=== PATIENT | female | born 1975 | race Caucasian/White ===

== ENCOUNTER → 2017-10-16 | Outpatient (CLI) | payer OTHER ==
--- NOTE | 2017-10-16 10:51 | MM ---
Reason for exam: additional evaluation requested from prior study. Last mammogram was performed 1 year and 6 months ago. History: Patient had first child at age 31. Family history of premenopausal breast cancer in mother at age 42 and breast cancer in maternal aunt. Saline implants in both breasts, 2009. Physical Findings: Nurse did not find any significant physical abnormalities on exam. MG 3D Diag Mammo Imp W/Cad CARL Bilateral CC, MLO, and ID view(s) were taken. Prior study comparison: April 18, 2016, bilateral MG 3d diag mammo imp w/cad CARL. April 02, 2015, bilateral MG 3d diag mammo imp w/cad CARL. The breast tissue is heterogeneously dense. This may lower the sensitivity of mammography. No suspicious calcifications are seen. Chronic nodularity. There is no dominant lesion. There is no discrete abnormality. Stable retropectoral implants intact. These results were verbally communicated with the patient and result sheet given to the patient on 10/16/17. ASSESSMENT: Benign, BI-RAD 2 RECOMMENDATION: Routine screening mammogram of both breasts in 1 year.
== END | disposition home or self-care (01) ==
LOC: RADMAMWWP 09:32
PROVIDERS: ATTEND Obstetrics & Gynecology
DX: R92.8 Other abnormal and inconclusive findings on diagnostic imaging of breast (principal)
CPT/HCPCS: 77062; 77066

== ENCOUNTER → 2018-10-17 | Outpatient (CLI) | payer OTHER ==
--- NOTE | 2018-10-18 11:45 | MM ---
Reason for exam: screening (asymptomatic). Last mammogram was performed 1 year ago. History: Patient had first child at age 31. Family history of premenopausal breast cancer in mother at age 42 and breast cancer in maternal aunt. Saline implants in both breasts, 2009. Physical Findings: A clinical breast exam by your physician is recommended on an annual basis and results should be correlated with mammographic findings. MG 3D Screen Mammo Imp/Cad Bilateral CC, MLO, and ID view(s) were taken. Prior study comparison: October 16, 2017, bilateral MG 3d diag mammo imp w/cad CARL. April 18, 2016, bilateral MG 3d diag mammo imp w/cad CARL. The breast tissue is heterogeneously dense. This may lower the sensitivity of mammography. Finding #1: There is a 15 mm circumscribed oval mass in the right breast on CC 32/60. Finding #2: There are typically benign round calcifications in both breasts. Questionable nodularity right MLO 18/60 upper quadrant. Bilateral subglandular implants. There is a 14mm oval circumscribed mass in the left upper outer quadrant, 3cm from the nipple on CC 38/65 and MLO 18/61. ASSESSMENT: Incomplete: need additional imaging evaluation, BI-RAD 0 RECOMMENDATION: Ultrasound of both breasts. [facility] will attempt to contact patient to return for ultrasound.
== END | disposition home or self-care (01) ==
LOC: RADMAMWWP 09:33
PROVIDERS: ATTEND Obstetrics & Gynecology
DX: Z12.31 Encounter for screening mammogram for malignant neoplasm of breast (principal); Z80.3 Family history of malignant neoplasm of breast
CPT/HCPCS: 77063; 77067

== ENCOUNTER → 2018-10-31 | Outpatient (CLI) | payer OTHER ==
--- NOTE | 2018-10-31 11:27 | USB ---
Reason for exam: additional evaluation requested from abnormal screening. History: Patient had first child at age 31. Family history of premenopausal breast cancer in mother at age 42 and breast cancer in maternal aunt. Saline implants in both breasts, 2010. Physical Findings: Nurse did not find any significant physical abnormalities on exam. US Breast Workup Limited CARL Right complete breast ultrasound includes all four quadrants, the retroareolar region and axilla. Finding demonstrates a 1.5 x 1.3 x 0.6cm oval, cystic lesion at 12 o'clock, a 0.4 x 0.7 x 0.3cm oval, complex, cystic lesion at 12 o'clock, a 0.7 x 0.7 x 0.4cm oval, complex, cystic lesion at 1 o'clock, a 0.7 x 0.6 x 0.3cm oval, irregular, cystic lesion at 7 o'clock, a 0.5 x 0.3 x 0.2cm oval, solid, hyperechoic lipoma at 8 o'clock and a 0.7 x 0.7 x 0.4cm oval, cystic lesion at 10 o'clock. Left limited breast ultrasound including focal area of concern, retroareolar and axilla demonstrates a 1.0 x 1.0 x 0.4cm cystic lesion at 12 o'clock, a 1.5 x 1.3 x 0.7cm cystic lesion at 1 o'clock and a 0.7 x 1.0 x 0.5cm cystic lesion at 2 o'clock. These results were verbally communicated with the patient and result sheet given to the patient on 10/31/18. ASSESSMENT: Suspicious, BI-RAD 4 RECOMMENDATION: Ultrasound core biopsy of the right breast. Called Dr. Nicole with mammographic findings and has scheduled an appointment for the patient for 12/26/18 at 8:[address] Mckeon. Biopsy scheduled for 11/20/18 at 2:00. PRELIMINARY REPORT CALLED AND FAXED TO DR. MCKEON ON 10/31/18.
== END | disposition home or self-care (01) ==
LOC: RADUSWWP 08:22
PROVIDERS: ATTEND Obstetrics & Gynecology
DX: R92.8 Other abnormal and inconclusive findings on diagnostic imaging of breast (principal)

== ENCOUNTER → 2020-02-06 | Outpatient (CLI) | payer OTHER ==
[2020-02-06 19:03] LABS: DNA Double-Stranded Indetermin (NEGATIVE)
[2020-02-06 20:31] LABS: African American GFR (CKD) 102.5 (60.0-200.0); Albumin 4.7 g/dL (3.80-4.90); Albumin/Globulin Ratio 2.14 (1.60-3.17); Anion Gap 8.1 mmol/L (4.00-12.00); BUN/Creat Ratio 18.75 Ratio (12.00-20.00); Calcium 9.7 mg/dL (8.7-10.3); Carbon Dioxide 26.9 mmol/L (21.6-31.8); Globulin 2.2 g/dL (1.6-3.3); Non-African American GFR(CKD) 88.4 (60.0-200.0); Potassium 4.4 mmol/L (3.5-5.5); Total Bilirubin 0.6 mg/dL (0.3-1.2); Total Protein 6.9 g/dL (6.2-8.2)
[2020-02-07 19:41] LABS: HLA B27 NEGATIVE
== END | disposition home or self-care (01) ==
LOC: LABWHC1 11:29
PROVIDERS: ATTEND Internal Medicine Rheumatology
DX: R76.8 Other specified abnormal immunological findings in serum (principal); M70.60 Trochanteric bursitis, unspecified hip; M79.671 Pain in right foot; Z79.899 Other long term (current) drug therapy; M53.3 Sacrococcygeal disorders, not elsewhere classified
CPT/HCPCS: 36415; 80053; 83516; 85652; 86160; 86225; 86235; 86812

== ENCOUNTER → 2021-08-03 | Outpatient (CLI) | payer OTHER ==
--- NOTE | 2021-08-04 06:52 | MR ---
EXAMINATION TYPE: MR shoulder RT wo con DATE OF EXAM: 08/03/2021 COMPARISON: None. HISTORY: Right shoulder pain. TECHNIQUE: Multiplanar, multisequence imaging of the right shoulder is performed without contrast. FINDINGS: Rotator Cuff: Distal supraspinatus and infraspinatus tendons are intact. Distal subscapularis tendon is intact. No retracted tear. Rotator cuff muscle is preserved. Acromioclavicular Joint: Mild to moderate narrowing with moderate capsular hypertrophy. Loss of under lying fat plane is identified. Distal acromion morphology unremarkable. Glenohumeral Joint: Mild to moderate narrowing greatest inferiorly with small joint effusion. No sign ificant spurring. Labrum: The labrum appears grossly intact given limitation of non-arthrogram study. Biceps Tendon: The long head of biceps is in normal location within bicipital groove. Bone marrow signal: Heterogeneity consistent with red marrow reconversion. No suspicious focal edema. Other: No additional significant abnormality is appreciated. IMPRESSION: 1. No rotator cuff tear identified. Degenerative changes with suggestion of underlying impingement. C orrelate clinically.
== END | disposition home or self-care (01) ==
LOC: RADMRIMAIN 16:12
PROVIDERS: ATTEND Orthopaedic Surgery
DX: S43.421A Sprain of right rotator cuff capsule, initial encounter (principal); X58.XXXA Exposure to other specified factors, initial encounter

== ENCOUNTER → 2023-09-17 | Outpatient (CLI) | payer OTHER ==
[2023-09-17 14:23] LABS: HGB 15.1 g/dL (12.0-15.0); MCH 29.3 pg (27.0-32.0); MCHC 32.8 g/dL (32.0-37.0); MCV 89.3 FL (80.0-97.0); Mean Platelet Volume 10.9 FL (9.5-12.2); NRBC Per 100 WBC 0 X 10*3/uL (0.00-0.01); Platelet Count 245 X 10*3/uL (140-440); RBC 5.15 X 10*6/uL (4.10-5.20); RDW 12.6 % (11.5-14.5); WBC 9.41 X 10*3/uL (4.50-10.00)
[2023-09-17 15:15] LABS: ALT 11 U/L (8-44); AST 18 U/L (13-35); Albumin 4.6 g/dL (3.8-4.9); Albumin/Globulin Ratio 2.09 Ratio (1.60-3.17); Alkaline Phosphatase 54 U/L (41-126); BUN/Creat Ratio 19.56 Ratio (12.00-20.00); Blood Urea Nitrogen 17.6 mg/dL (9.0-27.0); Calcium 9.6 mg/dL (8.7-10.3); Carbon Dioxide 29.5 mmol/L (21.6-31.8); Chloride 99 mmol/L (96-109); Chol/HDL Ratio 4.69 Ratio; Globulin 2.2 g/dL (1.6-3.3); Glucose 108 mg/dL (70-110); LDL Cholesterol,Calculated 88.5 mg/dL (0.0-131.0); Potassium 4.3 mmol/L (3.5-5.5); Sodium 140 mmol/L (135-145); Total Bilirubin 0.4 mg/dL (0.3-1.2); Total Protein 6.8 g/dL (6.2-8.2)
== END | disposition home or self-care (01) ==
LOC: LABWHC1 08:11
PROVIDERS: ATTEND Family Medicine
DX: Z00.01 Encounter for general adult medical examination with abnormal findings (principal)
CPT/HCPCS: 36415; 80053; 80061; 85027

== ENCOUNTER → 2024-03-07 | Outpatient (CLI) | payer OTHER ==
--- NOTE | 2024-03-19 06:52 | HM ---
HOLTER MONITOR REPORT INDICATION: Palpitations. FINDINGS: Underlying rhythm is sinus with an average heart rate of 76 beats per minute. There was 1 short self-limited run of atrial tachycardia. Occasional PVCs and PACs are noted. There were no episodes of atrial fibrillation. CONCLUSION: This Holter monitor revealed sinus rhythm with PACs and PVCs and short self-limited run of atrial tachycardia. MMODL / IJN: [id number] /
== END | disposition home or self-care (01) ==
LOC: RADECHMAIN 12:08
PROVIDERS: ATTEND Family Medicine
DX: I49.3 Ventricular premature depolarization (principal); I47.19 Other supraventricular tachycardia; R00.2 Palpitations
CPT/HCPCS: 93225

== ENCOUNTER → 2024-09-22 | Outpatient (CLI) | payer OTHER ==
[2024-09-22 15:27] LABS: BUN/Creat Ratio 16.38 Ratio (12.00-20.00); Blood Urea Nitrogen 13.1 mg/dL (9.0-27.0); Carbon Dioxide 26.5 mmol/L (21.6-31.8); Chloride 104 mmol/L (96-109); Chol/HDL Ratio 4.72 Ratio; Glucose 91 mg/dL (70-110); LDL Cholesterol,Calculated 106.4 mg/dL (0.0-131.0); Potassium 4.3 mmol/L (3.5-5.5); Sodium 140 mmol/L (135-145)
[2024-09-22 15:28] LABS: ALT 8 U/L (8-44); AST 17 U/L (13-35); Albumin 4.3 g/dL (3.8-4.9); Albumin/Globulin Ratio 1.87 Ratio (1.60-3.17); Alkaline Phosphatase 57 U/L (41-126); Calcium 9.4 mg/dL (8.7-10.3); Globulin 2.3 g/dL (1.6-3.3); Total Bilirubin 0.4 mg/dL (0.3-1.2); Total Protein 6.6 g/dL (6.2-8.2)
[2024-09-22 16:22] LABS: HCT 44.9 % (37.2-46.3); HGB 14.7 g/dL (12.0-15.0); MCH 30.2 pg (27.0-32.0); MCHC 32.7 g/dL (32.0-37.0); MCV 92.2 FL (80.0-97.0); Mean Platelet Volume 10.4 FL (9.5-12.2); NRBC Per 100 WBC 0 X 10*3/uL (0.00-0.01); Platelet Count 287 X 10*3/uL (140-440); RBC 4.87 X 10*6/uL (4.10-5.20); RDW 12.9 % (11.5-14.5); WBC 8.53 X 10*3/uL (4.50-10.00)
== END | disposition home or self-care (01) ==
LOC: LABWHC1 09:53
PROVIDERS: ATTEND Family Medicine
DX: Z00.00 Encounter for general adult medical examination without abnormal findings (principal)
CPT/HCPCS: 36415; 80053; 80061; 85027